=== PATIENT | female | born 2005 | race Caucasian/White ===

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

== ENCOUNTER 2025-02-26 17:50 | Emergency (ER) | payer MEDICAID ==
[~2025-02-26] VITALS: Ht 162.6 cm; Wt 56.6 kg
[2025-02-26 17:57] VITALS: BP 120/84; PULSE 94; RESP 18; TEMP 97.2; O2SAT 98
[2025-02-26] MEDS: triamcinolone acetonide 40mg/ml inj IM STA (20:11)
--- NOTE | 2025-02-26 20:25 | Physician Documentation ---
History of Present Illness ~ Chief Complaint: Rash Stated Complaint: ALLERGIC REACTION Time Seen by MD: 18:54 Primary Medical Doctor: NONE HPI Patient is seen today with complaints of itchy throat and rash and swelling on the right side of his face that occurred just prior to arrival today. Patient states he is staying at [facility] currently. Patient denies any shor tness of breath or difficulty breathing. Patient denies starting any new medications states he did have some macaroni salad and isn't quite sure everything that was in it. Patient has no other concern or complaint at this time and denies any other rash on his body at this time. Medication Reconciliation Allergies: Coded Allergies: No Known Allergies (Unverified , 02/26/25) Scheduled Cephalexin (Cephalexin), 5 ML PO TID Glycerin (Laxative Suppository), 1 EACH RC QAM Ibuprofen 100MG/5ML Susp* (Motrin 100 MG/5ML Susp.*), 11 ML PO TID Ondansetron Hcl (Zofran), 4 ML PO Q8H Sulfamethoxazole/Trimethoprim (Septra Suspension), 10 ML PO BID Scheduled PRN ONDANSETRON ODT 4mg tablet (Ondansetron Odt), 1 TABLET PO Q6H PRN PRN for nausea/vomiting Past Medical History Past Medical History: UTI Past Surgical History: no surgical history Smoking Status: Current every day smoker Alcohol Use: None Drug Use: none Lives with: Family Lives In: Home 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: child Review of Systems Constitutional: Denies: chills, fever, weakness Eyes: Denies: pain, blurred vision ENT: Denies: ear pain, nose pain, throat pain, mouth pain Respiratory: Denies: cough, shortness of breath Cardiovascular: Denies: chest pain, palpitations Gastrointestinal: Denies: abdominal pain, nausea, vomiting Genitourinary: Denies: burning, dysuria Female Genitalia: Denies: vaginal discharge, pelvic pain Neurological: Denies: headache, dizziness Musculoskeletal: Denies: pain, swelling Integumentary: Denies: rash, lesions Allergic/Immunologic: Denies: hives, itching Hematologic/Lymphatic: Denies: no symptoms reported Psychiatric: Denies: depression, anxiety Physical Exam Vital Signs: Temperature: 97.2, Source: Temporal, Heart Rate: 94, Respiratory Rate: 18, BP: 120/84, Pulse Oximetry: 98, Weight: 56.560 Physical Exam General: Awake and Alert, no acute distress. HEENT: Patient on exam does have very patent airway without any significant swelling of the oropharynx. Stridor appreciable on exam. PERRLA, EOM intact bilaterally. Conjunctiva pink, Sclera clear, Mucus Membranes moist. Neck: Supple without masses and tenderness. Resp: Unlabored. Lungs clear to auscultation bilaterally. Heart: Regular Rate and rhythm, normal S1 and S2 without murmur, rub or gallop. Extremities: No cyanosis,clubbing or edema. Skin: Patient on exam does have mild swelling and erythema of the right side of his face. No blistering or skin breakdown. Progress Results/Orders Results/Orders Completed Orders - JANEEN DARNELL Triamcinolone Acet 40mg/Ml Inj (Kenalog- (02/26/25 19:12) Medications Received in ER Medications (Trade) Dose Ordered Sig/Lilian Route PRN Reason Start Time Stop Time Status Last Admin Dose Admin (Kenalog-40 inj) 80 mg ONCE STAT IM 02/26/25 19:12 02/26/25 19:13 DC 02/26/25 20:11 80 MG Vital Signs 02/26/25 17:57 Temp 97.2 Pulse 94 Resp 18 B/P (MAP) 120/84 Pulse Ox 98 Medical Decision Making Findings Patient is seen today with complaints of itchy throat and rash and swelling on the right side of his face that occurred just prior to arrival today. Patient states he is staying at [facility] currently. Patient denies any shortness of breath or difficulty breathing. Patient denies starting any new medications states he did have some macaroni salad and isn't quite sure ever ything that was in it. Patient has no other concern or complaint at this time and denies any other rash on his body at this time. Patient was given Kenalog 40 mg IM in the ED today. Patient will return to ED with any worsening, concerning or changing symptoms. Patient will follow up with primary care in 1-3 days if no better as needed sooner. Departure Disposition: 01 HOME / SELF CARE / HOMELESS Impression: Primary Impression: Allergic reaction Qualified Codes: T78.40XA - Allergy, unspecified, initial encounter Condition: Improved Discharge Instructions: Hives Additional Instructions: Patient was given Kenalog 40 mg IM in the ED today. Patient will return to ED with any worsening, concerning or changing symptoms. Patient will follow up with primary care in 1-3 days if no better as needed sooner. Referrals: NO PRIMARY CARE PROVIDER (PCP) Signature Scribe Signature: No scribe Attestation: No scribe JANEEN DARNELL PAC Feb 26, 2025 20:25
== END 2025-02-26 21:11 | disposition home or self-care (01) ==
LOC: ER 17:51
DX: T78.49XA Other allergy, initial encounter (principal); R21 Rash and other nonspecific skin eruption; R22.0 Localized swelling, mass and lump, head; F17.200 Nicotine dependence, unspecified, uncomplicated; X58.XXXA Exposure to other specified factors, initial encounter
CPT/HCPCS: 96372; 99283; J3301

== ENCOUNTER 2025-02-27 17:24 | Emergency (ER) | payer MEDICAID ==
[~2025-02-27] VITALS: Ht 162.6 cm; Wt 63.6 kg
[2025-02-27 17:38] VITALS: BP 127/77; PULSE 85; RESP 16; O2SAT 99
[2025-02-27 20:27] VITALS: TEMP 98.5
== END 2025-02-27 20:28 | disposition left against medical advice (07) ==
LOC: ER 17:25
DX: L50.9 Urticaria, unspecified (principal); Z53.21 Procedure and treatment not carried out due to patient leaving prior to being seen by health care provider

== ENCOUNTER 2025-06-21 12:11 | Emergency (ER) | payer MEDICAID ==
[~2025-06-21] VITALS: Ht 160 cm; Wt 55.9 kg
[2025-06-21 12:23] VITALS: TEMP 99.3
[2025-06-21] MEDS: ondansetron/PF 4mg/2ml inj IV ONE (13:05)
[2025-06-21] MEDS: normal saline 1000ML IV soln IVB ONE ×3 (13:05→13:59)
[2025-06-21] MEDS: metoclopramide 5 mg/ml inj IV ONE (13:05)
--- NOTE | 2025-06-21 13:08 | Physician Documentation ---
History of Present Illness General Chief Complaint: Vomiting Stated Complaint: VOMITING Time Seen by MD: 12:57 Primary Medical Doctor: NONE History of Present Illness Initial Comments The patient is a 19-year-old female who complains of epigastric abdominal pain and nausea and vomiting, patient has a had episodes of this in the past she has also smoked cannabis. The patient denies any fevers she states her pain is moderate intensity she localizes the pain to the epigastric region. The patient denies any significant diarrhea the patient's symptoms are moderate and persistent. The patient states that her symptoms are improved when she takes a hot shower. Medication Reconciliation Allergies: Coded Allergies: No Known Allergies (Unverified , 06/21/25) Scheduled Cefpodoxime Proxetil (Vantin), 1 TAB PO Q12H Cephalexin (Cephalexin), 5 ML PO TID Glycerin (Laxative Suppository), 1 EACH RC QAM Ibuprofen 100MG/5ML Susp* (Motrin 100 MG/5ML Susp.*), 11 ML PO TID Ondansetron Hcl (Zofran), 4 ML PO Q8H Sulfamethoxazole/Trimethoprim (Septra Suspension), 10 ML PO BID Scheduled PRN ONDANSETRON ODT 4mg tablet (Ondansetron Odt), 1 TABLET PO Q6H PRN PRN for nausea/vomiting ONDANSETRON ODT 4mg tablet (Ondansetron Odt), 1 TABLET PO Q6H PRN for nausea/vomiting Past Medical History Past Medical History: No Pertinent History, UTI Past Surgical History: no surgical history Smoking: Non-Smoker Alcohol Use: None Drug Use: none Lives with: Family Lives In: Home 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 GENERAL: Alert, no apparent distress. HEENT: Normocephalic, atraumatic, PERRL, EOMI, dry mucosa, no erythema RESPIRATORY: Lungs clear, normal breath sounds, no respiratory distress. CHEST: No accessory muscle use, no retractions CV: Regular rate, rhythm, no edema, no murmur, No: JVD GI: Tender epigastrium, bowels sounds present, no rebound, guarding, or rigidity BACK: No CVA tenderness, or swelling MUSCULOSKELETAL: No deformities, no edema SKIN: Warm and dry, no rash NEURO: Oriented x4, No motor or sensory deficit PSYCH: Normal mood and affect, no agitation Progress Results/Orders Results/Orders Completed Orders - OHLFS,FLAQUITO Henry MD Normal Saline 1000ml (0.9% Sodium Chlori (06/21/25 12:45) Ondansetron Inj. (Zofran 4mg/2ml Vial) (06/21/25 12:45) Cbc/Diff (06/21/25 12:43) Bmp Er (06/21/25 12:43) Normal Saline 1000ml (0.9% Sodium Chlori (06/21/25 13:00) Normal Saline 1000ml (0.9% Sodium Chlori (06/21/25 13:00) Metoclopramide Inj (Reglan Inj) (06/21/25 13:00) Diphenhydramine Inj (Benadryl Inj.) (06/21/25 13:00) Procalcitonin (06/21/25 13:15) Hcg, Ur Ql (06/21/25 14:55) Ua W/Microscopic, Cult If Ind (06/21/25 10:05) Cult Urine + [address] (06/21/25 15:30) Ceftriaxone 2gm/D5w 50ml Bag (Rocephin 2 (06/21/25 16:05) Vital Signs 06/21/25 06/21/25 06/21/25 06/21/25 12:23 13:13 13:33 14:00 Temp 99.3 Pulse 104 89 78 Resp 20 16 16 B/P (MAP) 141/89 106/80 (89) 108/68 (81) Pulse Ox 97 98 97 O2 Flow Rate 0 0 0 06/21/25 06/21/25 15:25 16:41 Pulse 76 86 Resp 15 18 B/P (MAP) 99/63 (75) 106/59 Pulse Ox 98 97 O2 Flow Rate 0 Laboratory Tests Test 06/21/25 10:05 06/21/25 12:58 Urine Specimen Description Cln catch midstream Urine Color Yellow Urine Clarity Slightly cloudy Urine pH 7.0 Urine Specific [place] 1.010 Urine Protein 100 H Urine Glucose (UA) Negative Urine Ketones 15 H Urine Occult Blood Small Urine Nitrite Negative Urine Bilirubin Negative Urine Urobilinogen 0.2 Urine Leukocyte Esterase Small H Urine RBC 10-20 Urine WBC Tntc H Urine WBC Clumps Moderate Urine Squamous Epithelial Cells Few Urine Bacteria 1+ Urine Mucus Few Urine Culture Indicated Indicated Volume Urine Centrifuged 10 ml Urine HCG, Qualitative Negative Urine Comment White Blood Count 23.9 H Red Blood Count 4.15 L Hemoglobin 12.9 Hematocrit 37.6 Mean Corpuscular Volume 90.8 Mean Corpuscular Hemoglobin 31.2 H Mean Corpuscular Hemoglobin Concent 34.4 Red Cell Distribution Width 13.1 Platelet Count 293 Mean Platelet Volume 7.8 Neutrophils (%) (Auto) 89.7 H Lymphocytes (%) (Auto) 5.0 L Monocytes (%) (Auto) 5.1 Eosinophils (%) (Auto) 0.1 Basophils (%) (Auto) 0.1 Neutrophils # (Auto) 21.4 H Lymphocytes # (Auto) 1.2 Monocytes # (Auto) 1.2 H Eosinophils # (Auto) 0.0 Basophils # (Auto) 0.0 CBC Comment Sodium Level 140 Potassium Level 3.8 Chloride Level 103 Carbon Dioxide Level 29.3 Anion Gap 8 Blood Urea Nitrogen 12 Creatinine 0.77 Estimated GFR/1.73 m2 > 90 BUN/Creatinine Ratio 15.6 Glucose Level 124 H Calcium Level 9.4 Albumin 4.4 Procalcitonin 0.71 H Chemistry Comments Microbiology Date/Time Source Procedure Growth Status 06/21/25 15:30 Urine Clean Catch Midstream Urine Culture - Final Proteus Mirabilis Complete Medical Decision Making Additional information obtaine: old records Findings The patient is a 19-year-old female with cyclic vomiting the patient was found to have a urinary tract infection she was treated with a cocktail of medications for nausea and vomiting and IV fluids she was also given a dose of ceftriaxone the patient has a benign exam her prior hospitalizations has been reviewed the patient's pulse oximetry was interpreted as normal and adequate. 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 Differential Diagnosis Gastritis, biliary colic, peptic ulcer disease, cyclic vomiting, nausea and vomiting of Departure Impression: Primary Impression: Vomiting Qualified Codes: R11.2 - Nausea with vomiting, unspecified Additional Impression: Urinary tract infection Qualified Codes: N30.00 - Acute cystitis without hematuria Discharge Instructions: Nausea and Vomiting, Adult, Urinary Tract Infection, Adult, [id number] Referrals: NO PRIMARY CARE PROVIDER (PCP) Prescriptions Cefpodoxime Proxetil (Vantin) 200 Mg Tablet 1 TAB PO Q12H for 7 Days, #14 TAB Prov: FLAQUITO PONCE MD 06/21/25 ONDANSETRON ODT 4mg tablet (ONDANSETRON ODT) 4 Mg Tab.rapdis 1 TABLET PO Q6H PRN for nausea/vomiting, #12 TABLET Prov: FLAQUITO PONCE MD 06/21/25 Signature Scribe Signature: No scribe Attestation: The note accurately reflects work and decisions made by me.Flaquito Ponce MD 06/25/25 06:55 FLAQUITO PONCE MD Jun 21, 2025 13:08
[2025-06-21 13:10] LABS: MEAN PLATELET VOLUME 7.8 FL (7.4-10.4); RED CELL DISTRIBUTION WIDTH 13.1 % (11.5-14.5)
[2025-06-21 13:22] LABS: CREATININE 0.77 MG/DL (0.40-0.90); TOTAL CARBON DIOXIDE 29.3 MMOL/L (24-32); eCRCL 97 ML/MIN; eGFR > 90 ML/MIN
[2025-06-21] MEDS ORDERED: ONDA-243 PO (14:58)
[2025-06-21 15:21] LABS: LEUKOCYTE ESTERASE ,URINE SMALL (Neg); NITRITES, URINE NEGATIVE (Neg); OCCULT BLOOD,URINE SMALL (Neg)
[2025-06-21 15:23] LABS: URINE HCG NEGATIVE (NEG)
[2025-06-21 15:28] LABS: UA COLLECTION TYPE CLN CATCH MIDSTREAM
[2025-06-21 15:29] LABS: MUCUS STRANDS FEW /LPF (Neg); SQUAMOUS EPITHELIAL CELL,UR FEW /LPF (FEW)
[2025-06-21 15:30] LABS: WBC CLUMPS,URINE MODERATE /HPF (NEGATIVE)
[2025-06-21] MEDS ORDERED: CEFP200T13 PO (16:06)
[2025-06-21] MEDS: CefTRIAXone 2gm/D5W 50ml BAG 50 ML IV ONE (16:18)
[2025-06-21 16:41] VITALS: BP 106/59; PULSE 86; RESP 18; O2SAT 97
== END 2025-06-21 16:54 | disposition home or self-care (01) ==
LOC: ER 12:12
DX: R11.2 Nausea with vomiting, unspecified (principal); N39.0 Urinary tract infection, site not specified
CPT/HCPCS: 36415; 80048; 81001; 81025; 84145; 85025; 87077; 87088; 87186; 96361; 96365; 96375; 99285; J0696; J1200; J2405; J2765; J7030